=== PATIENT | female | born 1965 | race Caucasian/White ===

== ENCOUNTER 2022-05-09 13:41 | Emergency (ER) | payer OTHER ==
[2022-05-09] MEDS ORDERED: Sodium Chloride 0.9% 10 ML Syringe FLUSH PRN (14:15)
[2022-05-09] MEDS ORDERED: Sodium Chloride 0.9% 1,000 ML IV SCH (14:15)
[2022-05-09] MEDS ORDERED: Ondansetron 4 MG/2 ML SDV IVPUSH ONE (14:17)
[2022-05-09 15:07] LABS: ESTIMATED GFR > 60 mL/min (>60)
[2022-05-09] MEDS ORDERED: Ketorolac 30 MG/ML SDV IVPUSH ONE (16:17)
[2022-05-09] MEDS ORDERED: HYDROmorphone 0.5 MG/0.5 ML Syringe IVPUSH ONE (17:35)
[2022-05-09 18:36] LABS: CORONAVIRUS COVID-19 NAA NEGATIVE (NEGATIVE)
== END 2022-05-09 19:00 | disposition home or self-care (01) ==
LOC: SUPCPDRO 13:41 → JD.ED 13:41
DX: R42 Dizziness and giddiness (principal); J06.9 Acute upper respiratory infection, unspecified; E78.00 Pure hypercholesterolemia, unspecified; E11.9 Type 2 diabetes mellitus without complications; Z86.16 Personal history of COVID-19; Z88.1 Allergy status to other antibiotic agents; Z79.82 Long term (current) use of aspirin; Z79.84 Long term (current) use of oral hypoglycemic drugs; Z79.899 Other long term (current) drug therapy; Z20.822 Contact with and (suspected) exposure to COVID-19
CPT/HCPCS: 0240U; 36415; 80053; 81001; 82009; 82947; 83735; 84100; 85025; 96361; 96374; 96375; 99284; A9270; J1170; J1885; J2405; J3490; J7030